=== PATIENT | female | born 1955 | race Caucasian/White ===

== ENCOUNTER 2017-11-21 12:12 | Emergency (ER) | payer OTHER ==
[~2017-11-21] VITALS: Ht 172.7 cm; Wt 81.6 kg
--- NOTE | 2017-11-21 13:32 | CT SCAN REPORT ---
EXAMINATION: CT HEAD WITHOUT CONTRAST CT CERVICAL SPINE WITHOUT CONTRAST CLINICAL INFORMATION: Trauma. Fall. Neck pain. Head strike. COMPARISON: None TECHNIQUE: Axial images of the head and cervical spine were obtained without contrast. Reformatted images were reviewed. DLP: 912 mGy-cm FINDINGS: HEAD CT: No intracranial hemorrhage or territorial infarction. No extra-axial fluid collection. No mass effect or midline shift. No hydrocephalus. No significant abnormal attenuation within the brain parenchyma. There is a small, high left parasagittal skull vertex, subgaleal hematoma. No subjacent calvarial fracture. Paranasal sinuses and mastoid air cells are aerated. CERVICAL SPINE CT: No fracture or dislocation. No prevertebral soft tissue swelling. No evidence of traumatic spondylolisthesis. Grade 1 anterolisthesis of C7 on T1 appears chronic. Additional mild grade 1 anterolisthesis of C3 on C4. There is osseous fusion of posterior elements at C2 and C3. No widening of the atlantoaxial interval. Multilevel degenerative endplate changes with osteophyte formation and disc space narrowing, most notable from C4 through C7. Multilevel facet arthropathy. There is a 0.4 cm left upper lobe calcified granuloma. IMPRESSION: 1. Small subgaleal hematoma along the high left parasagittal skull vertex. No calvarial fracture. 2. No acute intracranial pathology. 3. No acute cervical spine pathology. 4. Moderate degenerative changes of the cervical spine.
--- NOTE | 2017-11-21 14:28 | ED HEAD/FACIAL INJ COMPLAINT ---
History of Present Illness General Chief Complaint: Fall Stated Complaint: MECHANICAL FALL DOWN STAIRS HIT HEAD-THINNERS/-LOC Source: patient Exam Limitations: no limitations Vital Signs & Intake/Output Vital Signs & Intake/Output Vital Signs Date Time Temp Pulse Resp B/P B/P Pulse O2 O2 Flow FiO2 Mean Ox Delivery Rate 11/21 1216 97.5 63 18 153/69 98 Room Air Allergies Coded Allergies: Penicillins (Severe, GI UPSET 11/21/17) Triage Note: 62 PAIN AND R SIDED NECK PAIN S/P FALL DOWN STAIRS LAST EVENING. STRUCK HEAD BUT DENIES LOC. DENIES OTHER COMPLAINTS. SPEAKING CLEARLY WITH NO NEURO DEFICITS NOTED. EVAL'D BY ANANTH PRESTON IN TRIAGE Triage Nurses Notes Reviewed? yes Onset: Abrupt Severity: mild, moderate Severity Numbers: 5 Location: parietal Method of Injury: fall Loss of Consciousness: no loss of consciousness Associated Symptoms: neck pain LMP (ages 10-50): unknown : No Patient currently breastfeeds: No HPI: 62-year-old female with no medical history presents evaluation after fall. Patient reports last night she was walking down stairs when she tripped and fell landed on her head. She fell down 3 or 4 stairs. There is no loss of consciousness. She reports pain to the top of her head and right side of her neck. No changes in vision slurred speech chest pain shortness of breath vomiting abdominal pain back pain or hip pain. She has been a bleeding since the fall. She is not on blood thinners. She is not taking any medicine for pain. Denies any other injuries. Past History Travel History Traveled to [place] past 21 day No Medical History Any Pertinent Medical History? see below for history Neurological: NONE EENT: NONE Cardiovascular: NONE Respiratory: NONE Gastrointestinal: NONE Hepatic: NONE Renal: NONE Musculoskeletal: NONE Psychiatric: NONE Endocrine: NONE Blood Disorders: NONE Cancer(s): NONE FOREPART ROUNDER/Reproductive: NONE Surgical History Surgical History: non-contributory Psychosocial History What is your primary language Ethiopian Tobacco Use: Never used Family History Hx Contributory? No Review of Systems Review of Systems Constitutional: Reports: no symptoms. EENTM: Reports: no symptoms. Respiratory: Reports: no symptoms. Cardiovascular: Reports: no symptoms. GI: Reports: no symptoms. Genitourinary: Reports: no symptoms. Musculoskeletal: Reports: muscle pain, muscle stiffness, neck pain. Skin: Reports: no symptoms. Neurological/Psychological: Reports: headache. Hematologic/Endocrine: Reports: no symptoms. Immunologic/Allergic: Reports: no symptoms. All Other Systems: Reviewed and Negative Physical Exam Physical Exam General Appearance: well developed/nourished, no apparent distress, alert, awake Head: atraumatic, normal appearance, no signs of trauma no marie signs or raccoon eyes Eyes: Bilateral: normal appearance, PERRL, EOMI. Ears, Nose, Throat: hearing grossly normal Neck: normal inspection, supple, full range of motion, no midline tenderness, right sided cervical paraspinal muscles are tender to palpation no bruising swelling or abrasions noted midline tenderness no step-offs or deformities Respiratory: normal breath sounds, chest non-tender, no respiratory distress, lungs clear Cardiovascular: regular rate/rhythm, normal peripheral pulses Gastrointestinal: soft, non-tender Back: normal inspection, normal range of motion, no vertebral tenderness Extremities: normal inspection, normal range of motion, no edema Psychiatric: awake, alert, oriented x 3 Cranial Nerves: normal hearing, normal speech, PERRL Coordination/Gait: normal finger to nose, normal gait Motor/Sensory: no motor/sensory deficits Skin: intact, normal color, warm/dry Progress Differential Diagnosis: ICH, orbit fracture, skull fracture Plan of Care: Patient is here for evaluation after a fall. She didn't hit her head. It all occurred yesterday. She is handling without difficulty now. No blood thinners. A CT scan of the head and cervical spine are negative for significant findings. She does have a subgaleal hematoma without skull fracture or intracranial hemorrhage. Reviewed results with patient. Discussed signs and symptoms of possible concussion. Advised rest ice or excessive physical or mental activity Tylenol appropriate for pain follow-up with a primary care doctor in the next few days discussed return precautions patient agrees the plan Diagnostic Imaging: Viewed by Me: CT Scan. Discussed w/RAD: CT Scan. Radiology Impression: PATIENT: MARIA TERESA SENA PRESENT AGE: 62 PATIENT ACCOUNT NO: [id number] : 57 LOCATION: [facility] ORDERING PHYSICIAN: Delfin WADSWORTH SERVICE DATE: 11/21/171221 EXAM TYPE: CAT - CT CERV SPINE WO IV CONTRAST; CT HEAD WO IV CONTRAST EXAMINATION: CT HEAD WITHOUT CONTRAST CT CERVICAL SPINE WITHOUT CONTRAST CLINICAL INFORMATION: Trauma. Fall. Neck pain. Head strike. COMPARISON: None TECHNIQUE: Axial images of the head and cervical spine were obtained without contrast. Reformatted images were reviewed. DLP: 912 mGy-cm FINDINGS: HEAD CT: No intracranial hemorrhage or territorial infarction. No extra-axial fluid collection. No mass effect or midline shift. No hydrocephalus. No significant abnormal attenuation within the brain parenchyma. There is a small, high left parasagittal skull vertex, subgaleal hematoma. No subjacent calvarial fracture. Paranasal sinuses and mastoid air cells are aerated. CERVICAL SPINE CT: No fracture or dislocation. No prevertebral soft tissue swelling. No evidence of traumatic spondylolisthesis. Grade 1 anterolisthesis of C7 on T1 appears chronic. Additional mild grade 1 anterolisthesis of C3 on C4. There is osseous fusion of posterior elements at C2 and C3. No widening of the atlantoaxial interval. Multilevel degenerative endplate changes with osteophyte formation and disc space narrowing, most notable from C4 through C7. Multilevel facet arthropathy. There is a 0.4 cm left upper lobe calcified granuloma. IMPRESSION: 1. Small subgaleal hematoma along the high left parasagittal skull vertex. No calvarial fracture. 2. No acute intracranial pathology. 3. No acute cervical spine pathology. 4. Moderate degenerative changes of the cervical spine. DICTATED BY: Gilberto Hemphill MD DATE/TIME DICTATED:11/21/171310 DIRECTOR OF ACQUISITION MARKETING:MARGARITA DATE/TIME TRANSCRIBED:11/21/171310 CONFIDENTIAL, DO NOT COPY WITHOUT APPROPRIATE AUTHORIZATION. Departure Departure Disposition: HOME OR SELF CARE Condition: Stable Clinical Impression Primary Impression: Head injury Qualifiers: Encounter type: initial encounter Qualified Code: S09.90XA - Unspecified injury of head, initial encounter Referrals: Patient Has No Primary Care Dr (PCP/Family) Additional Instructions: Rest, avoid excessive physical and mental activity. Tylenol and ibuprofen for pain. Make a follow-up with 1 of the provided primary care doctors. Monitor your symptoms return with any concerns. Departure Forms: Customer Survey General Discharge Information
[2017-11-21 14:52] VITALS: BP 140/70
== END 2017-11-21 14:52 ==
LOC: ERH 12:12
DX: S09.90XA Unspecified injury of head, initial encounter (principal); W10.9XXA Fall (on) (from) unspecified stairs and steps, initial encounter; Y92.9 Unspecified place or not applicable; Y93.9 Activity, unspecified